=== PATIENT | male | born 1955 | race Two or more races ===

== ENCOUNTER 2019-05-23 20:25 | Emergency (ER) | payer OTHER ==
[~2019-05-23] VITALS: Ht 177.8 cm; Wt 99.8 kg
[2019-05-23 20:46] VITALS: BP 170/100
[2019-05-23] MEDS ORDERED: methylPREDNISolone ACETATE 80 MG/ML VIAL. IM ONE (21:15)
[2019-05-23] MEDS ORDERED: ACETAMINOPHEN 500 MG TABLET PO ONE (21:15)
--- NOTE | 2019-05-23 21:27 | PHYS DOC ---
Past Medical History Past Medical History: Arthritis, Diabetes-Type II, High Cholesterol, Hype rtension Additional Past Medical Histor: ENLARGED PROSTATE (ERICK NETTLES APRN) Past Surgical History: No Surgical History (ERICK NETTLES APRN) Alcohol Use: None Drug Use: None (ERICK NETTLES APRN) Attending Signature I have participated in the care of this patient and I have reviewed and agree with all pertinent clinical information above including history, exam, and recommendations. (SADIE SALAZAR MD) Adult General Chief Complaint Chief Complaint: BACK PAIN OR INJURY HPI HPI Patient is a 63 year old [male) who presents with [right hip pain worsening over the past 2 days. Patient reports he had been working, moving trash, and has continued to have some pain in his left low back/left hip. Reports he has not taken any medications for this, reports the pain goes away when he sits and rests throughout. Reports the pain does continue until he stops and rests anytime he is up and moving and twisting. Denies any recent abnormal heavy lifting, any recent falls. 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 Denies any discomfort shooting into his lower leg. Denies any problems walking, however states he does have some discomfort in the more he walks. Reports a discomfort mostly gets worsening time he bends over or twists to the right] (ERICK NETTLES APRN) Review of Systems Review of Systems Constitutional: Denies fever or chills [] Respiratory: Denies cough or shortness of breath [] Cardiovascular: No additional information not addressed in HPI [] GI: Denies abdominal pain, nausea, vomiting, bloody stools or diarrhea [] : Denies dysuria or hematuria [] Musculoskeletal: Reports pain to left hip. [ Integument: Denies rash or skin lesions ] Neurologic: Denies headache, focal weakness or sensory changes [] Endocrine: Denies polyuria or polydipsia [] All other systems were reviewed and found to be within normal limits, except as documented in this note. (ERICK NETTLES APRN) Current Medications Current Medications Current Medications Medications (Trade) Dose Ordered Sig/Rahel Start Time Stop Time Status Last Admin Dose Admin Acetaminophen (Tylenol) 1,000 mg 1X ONCE 05/23/19 21:15 10/31/19 21:16 DC 05/23/19 21:15 1,000 MG Methylprednisolone Acetate (DEPO-Medrol 80MG VIAL) 80 mg 1X ONCE 05/23/19 21:15 05/23/19 21:16 DC 05/23/19 21:15 80 MG (SADIE SALAZAR MD) Allergies Allergies Allergies Coded Allergies Type Severity Reaction Last Updated Verified No Known Drug Allergies 05/23/19 No (SADIE SALAZAR MD) Physical Exam Physical Exam Constitutional: Well developed, well nourished, no acute distress, non-toxic appearance. [] Neck: Normal range of motion, no tenderness, supple, no stridor. [] Lungs & Thorax: Bilateral breath sounds clear to auscultation [] Skin: Warm, dry, no erythema, no rash. [] Back: No tenderness, no CVA tenderness. no tenderness on palpation to lower back or spine.[] Extremities: No tenderness, no cyanosis, no clubbing, ROM intact, no edema. Able to raise leg bilaterally without difficulty, reports discomfort when standing, bending over, with discomfort in left leg. Tenderness noted over greater trochanter left hip. Hip stable, no bruising, no tenderness, full ROM[] Neurologic: Alert and oriented X 3, normal motor function, normal sensory function, no focal deficits noted. [] Psychologic: Affect normal, judgement normal, mood normal. [] (ERICK NETTLES APRN) Current Patient Data Vital Signs Vital Signs Date Time Temp Pulse Resp B/P (MAP) Pulse Ox O2 Delivery O2 Flow Rate FiO2 05/23/19 20:46 98.2 77 20 170/100 (123) 95 Room Air 98.2 (SADIE SALAZAR MD) EKG EKG [] (ERICK NETTLES APRN) Radiology/Procedures Radiology/Procedures [] (ERICK NETTLES APRN) Course & Med Decision Making Course & Med Decision Making Pertinent Labs and Imaging studies reviewed. (See chart for details) [Discussed findings trauma vs muscle vs joint. Believe joint related due to increase discomfort on ROM, no muscle tightness, no decreased motion, no weakness. Discussed steroids as anti-inflamamtory with risk of increasing blood glucose, continued use of NSAIDs, avoiding Ibuprofen or limiting, due to history of diabetes. Patient in agreement with plan without further questions or concerns at this time. ] (ERICK NETTLES APRN) Dragon Disclaimer Dragon Disclaimer This electronic medical record was generated, in whole or in part, using a voice recognition dictation system. (ERICK NETTLES APRN) Departure Departure Impression: Primary Impression: Hip bursitis, left Disposition: 01 HOME, SELF-CARE Condition: STABLE Referrals: VERONICA HILL MD (PCP) Patient Instructions: Bursitis, [id number] Problem Qualifiers Primary Impression: Hip bursitis, left Hip bursitis location: unspecified Qualified Codes: M70.72 - Other bursitis of hip, left hip ERICK NETTLES APRN May 23, 2019 21:27 SADIE SALAZAR MD May 23, 2019 23:28
== END 2019-05-23 21:19 | disposition home or self-care (01) ==
LOC: ER 20:25
DX: M70.72 Other bursitis of hip, left hip (principal); Y93.89 Activity, other specified; M19.90 Unspecified osteoarthritis, unspecified site; E11.9 Type 2 diabetes mellitus without complications; E78.00 Pure hypercholesterolemia, unspecified; I10 Essential (primary) hypertension
CPT/HCPCS: 96372; 99283; J1040